=== PATIENT | female | born 1960 | race Caucasian/White ===

== ENCOUNTER 2016-12-09 13:16 | Emergency (ER) | payer MEDICAID ==
[2016-12-09 13:20] VITALS: BP 131/82; PULSE 80; RESP 20; TEMP 98.5; O2SAT 99
[2016-12-09] MEDS ORDERED: RANI150T PO (13:51)
[2016-12-09] MEDS ORDERED: TRIA.1%T TOPICAL (13:51)
[2016-12-09] MEDS ORDERED: HYDR-3133 PO (13:51)
[2016-12-09] MEDS ORDERED: VENTAER INH (13:51)
[2016-12-09] MEDS ORDERED: PRED20 PO (13:51)
[2016-12-09] MEDS ORDERED: ZANT150T2 PO (13:51)
[2016-12-09] MEDS ORDERED: ATOR20TA15 PO (13:51)
[2016-12-09] MEDS ORDERED: REGL5TAB PO (13:51)
[2016-12-09] MEDS ORDERED: TRIA0.022 TOPICAL (13:51)
[2016-12-09] MEDS ORDERED: diphenhydrAMINE HCL 50 MG/ML VIAL IV PUSH ONE ×2 (14:15→15:30)
[2016-12-09] MEDS ORDERED: SODIUM CHLORIDE 0.9% FLUSH 10 ML FLUSH IV FLUSH PRN (14:15)
[2016-12-09 14:23] VITALS: O2SAT 98
[2016-12-09 14:38] LABS: AUTOMATED NEUTROPHIL # 9.6 TH/MM3 (1.8-7.7); BASOPHIL # 0.1 TH/MM3 (0-0.2); BASOPHIL % 0.8 % (0.0-2.0); EOSINOPHIL # 0.6 TH/MM3 (0-0.4); EOSINOPHIL % 5.2 % (0.0-4.0); HEMATOCRIT 45.3 % (35.0-46.0); HEMO FLAGS DIFF FINAL; LYMPH % 6.4 % (9.0-44.0); LYMPHOCYTE # 0.8 TH/MM3 (1.0-4.8); MEAN CELL VOLUME 79.7 FL (80.0-100.0); MEAN CORPUSCULAR HEMOGLOBIN 25.9 PG (27.0-34.0); MEAN CORPUSCULAR HGB CONC 32.5 % (32.0-36.0); MONO % 6.5 % (0.0-8.0); NEUT % 81.1 % (16.0-70.0); PLATELET COUNT 209 TH/MM3 (150-450); RED BLOOD COUNT 5.69 MIL/MM3 (4.00-5.30); WHITE BLOOD COUNT 11.9 TH/MM3 (4.0-11.0)
--- NOTE | 2016-12-09 14:38 | PD ---
HPI Chief Complaint: Allergic/Adverse Reaction Time Seen by Provider: 13:57 Travel History International Travel<30 days: No Contact w/Intl Traveler<30days: No Traveled to known affect area: No History of Present Illness HPI The patient is Greek-speaking only and prefers to use her daughter for translation consider transitional services. 56-year-old female here for evaluation of possible allergic reaction to Plaquenil and Celebrex. She states that she was prescribed these medications on 11/29/16 for arthritis. She took 2 doses of the plaque 10 before noticing a pruritic rash on her arms and legs. She has been seen by multiple physicians since this time including 2 other urgency department visits for which she was prescribed prednisone. It doesn't sound like the patient was initially compliant with prednisone as she voices concern about gaining weight from these medications. She presents today because she is complaining of soreness in her mouth/throat with redness as well as vaginal/groin pruritus. No fever. No dyspnea. PFSH Social History Alcohol Use: No Tobacco Use: No Substance Use: No Allergies-Medications (Allergen,Severity, Reaction): Coded Allergies: Celebrex (Verified Allergy, Unknown, 12/09/16) Plaquenil (Verified Allergy, Unknown, 12/09/16) Reported Meds & Prescriptions Reported Meds & Active Scripts Active Reported Ventolin Hfa 18 GM Inh (Albuterol Sulfate) 90 Mcg/Act Aer 2 Puff INH Q4-6H PRN Reglan (Metoclopramide HCl) 5 Mg Tab 5 Mg PO TIDAC Atorvastatin (Atorvastatin Calcium) 20 Mg Tab 20 Mg PO HS Triamcinolone Topical (Triamcinolone Acetonide) 0.1% Cream 1 Applic TOPICAL BID Ranitidine (Ranitidine HCl) 150 Mg Tab 150 Mg PO HS Prednisone 20 Mg Tab 20 Mg PO DAILY Hydroxyzine HCl 25 Mg Tab 25 Mg PO QID PRN Review of Systems Except as stated in HPI: all other systems reviewed are Neg Physical Exam Narrative GENERAL: Well-developed, well-nourished, comfortable, no acute distress. SKIN: Diffuse erythematous maculopapular rash that is blanching, nonraised skin , no ulcerations, no desquamation, negative Nikolsky sign, no blistering. HEAD: Atraumatic. Normocephalic. EYES: Pupils equal and round. No scleral icterus. No injection or drainage. ENT: No nasal bleeding or discharge. Mucous membranes pink and moist. Pharynx is slightly erythematous without exudates. Uvula is midline. No ulcerative intraoral lesions. NECK: Trachea midline. No JVD. No nuchal rigidity. CARDIOVASCULAR: Regular rate and rhythm. RESPIRATORY: No accessory muscle use. Clear to auscultation. Breath sounds equal bilaterally. GASTROINTESTINAL: Abdomen soft, non-tender, nondistended. GENERAL HANDLING SUPERVISOR: Exam performed in the presence of a female nurse. Normal external genitalia. No vaginal discharge. Normal vaginal mucosa. MUSCULOSKELETAL: No obvious deformities. No clubbing. No cyanosis. No edema. NEUROLOGICAL: Awake and alert. No obvious cranial nerve deficits. Motor grossly within normal limits. Normal speech. PSYCHIATRIC: Appropriate mood and affect; insight and judgment normal. Data Data Last Documented VS Vital Signs Date Time Temp Pulse Resp B/P Pulse Ox O2 Delivery O2 Flow Rate FiO2 12/09/16 16:47 84 18 126/73 98 Room Air 12/09/16 13:20 98.5 Orders Complete Blood Count With Diff (12/09/16 14:12) Comprehensive Metabolic Panel (12/09/16 14:12) Prothrombin Time / Inr (Pt) (12/09/16 14:12) Act Partial Throm Time (Ptt) (12/09/16 14:12) Iv Access Insert/Monitor (12/09/16 14:12) Ecg Monitoring (12/09/16 14:12) Oximetry (12/09/16 14:12) Sodium Chloride 0.9% Flush (Ns Flush) (12/09/16 14:15) Group A Rapid Strep Screen (12/09/16 14:12) Wet Prep Profile (12/09/16 14:12) Diphenhydramine Inj (Benadryl Inj) (12/09/16 14:15) Strep Culture (Group A) (12/09/16 14:20) Urinalysis - C+S If Indicated (12/09/16 14:54) Dexamethasone Inj (Decadron Inj) (12/09/16 15:30) Diphenhydramine Inj (Benadryl Inj) (12/09/16 15:30) Lorazepam Inj (Ativan Inj) (12/09/16 15:45) Al-Mag Hy-Si 40-40-4 Mg/Ml Liq (Mag-Al P (12/09/16 16:15) Lidocaine 2% Viscous (Xylocaine 2% Visco (12/09/16 16:15) Sodium Chlor 0.9% 1000 Ml Inj (Ns 1000 M (12/09/16 16:45) Labs Laboratory Tests Test 12/09/16 12/09/16 12/09/16 14:20 14:54 14:56 White Blood Count 11.9 TH/MM3 Red Blood Count 5.69 MIL/MM3 Hemoglobin 14.7 GM/DL Hematocrit 45.3 % Mean Corpuscular Volume 79.7 FL Mean Corpuscular Hemoglobin 25.9 PG Mean Corpuscular Hemoglobin 32.5 % Concent Red Cell Distribution Width 14.0 % Platelet Count 209 TH/MM3 Mean Platelet Volume 8.9 FL Neutrophils (%) (Auto) 81.1 % Lymphocytes (%) (Auto) 6.4 % Monocytes (%) (Auto) 6.5 % Eosinophils (%) (Auto) 5.2 % Basophils (%) (Auto) 0.8 % Neutrophils # (Auto) 9.6 TH/MM3 Lymphocytes # (Auto) 0.8 TH/MM3 Monocytes # (Auto) 0.8 TH/MM3 Eosinophils # (Auto) 0.6 TH/MM3 Basophils # (Auto) 0.1 TH/MM3 CBC Comment DIFF FINAL Differential Comment Prothrombin Time 10.6 SEC Prothromb Time International 1.0 RATIO Ratio Activated Partial 22.7 SEC Thromboplast Time Sodium Level 142 MEQ/L Potassium Level 4.8 MEQ/L Chloride Level 106 MEQ/L Carbon Dioxide Level 28.8 MEQ/L Anion Gap 7 MEQ/L Blood Urea Nitrogen 12 MG/DL Creatinine 0.93 MG/DL Estimat Glomerular Filtration 62 ML/MIN Rate Random Glucose 98 MG/DL Calcium Level 9.1 MG/DL Total Bilirubin 0.3 MG/DL Aspartate Amino Transf 45 U/L (AST/SGOT) Alanine Aminotransferase 35 U/L (ALT/SGPT) Alkaline Phosphatase 89 U/L Total Protein 7.3 GM/DL Albumin 3.9 GM/DL Clue Cells (Wet Prep) NONE SEEN Vaginal Trichomonas (Wet Prep) NONE SEEN Vaginal Yeast (Wet Prep) NONE SEEN Urine Color LIGHT-YELLOW Urine Turbidity HAZY Urine pH 7.5 Urine Specific [place] 1.012 Urine Protein NEG mg/dL Urine Glucose (UA) NEG mg/dL Urine Ketones NEG mg/dL Urine Occult Blood NEG Urine Nitrite NEG Urine Bilirubin NEG Urine Urobilinogen LESS THAN 2.0 MG/DL Urine Leukocyte Esterase MOD Urine RBC 5 /hpf Urine WBC 4 /hpf Urine Squamous Epithelial 2 /hpf Cells Urine Mucus FEW /lpf Microscopic Urinalysis Comment CULT NOT INDICATED MDM Medical Decision Making Medical Screen Exam Complete: Yes Emergency Medical Condition: Yes Differential Diagnosis Adverse medication reaction, Fonseca-Gilberto syndrome/TENS unlikely, agranulocytosis, thrombocytopenia, Narrative Course Vital signs show heart rate 80, blood pressure 131/82, pulse ox 99% on room air , oral temp of 98.5F. CBC shows WBC 11.9, hemoglobin 14.7, hematocrit 45.3, platelets 209, neutrophils 81%. (the patient is on prednisone) CMP is unremarkable. UA is not suggestive of UTI. Wet prep is negative for yeast, negative for clue cells, negative for Trichomonas. Patient was given IV Benadryl and maculopapular rash has resolved. She is still scratching and complaining of itching. There are no blistering or ulcerative lesions on her skin or intraorally. I do not believe she has Fonseca -Gilberto syndrome or TENS. She is overall very well-appearing. She still has some prednisone at home. She was given a dose of Decadron here in the emergency department and shortly after she began experiencing a burning sensation in her chest and nausea. EKG was performed and shows no signs of ischemia. She was given another dose of Benadryl, GI cocktail, and Ativan and on reassessment was sleeping comfortably. When she wakes up she begins to scratch herself again. Again there are no signs of skin sloughing or ulcerative lesions. At this point she is stable for discharge home with outpatient follow-up. I encouraged her to follow up with the assembler installer general who prescribed the Plaquenil. She was advised to follow-up with a primary care physician as well this week. She was informed on when to return to the emergency department. Both the patient and the patient's daughter verbalize understanding and agreement with plan. Diagnosis Primary Impression: Adverse drug reaction Qualified Code: T88.7XXD - Adverse drug reaction, subsequent encounter Referrals: Primary Care Physician 3 days Additional Instructions: Follow-up with a primary care physician this week. Follow-up with your assembler installer general this week. Return to the emergency department for worsening symptoms or any other concerns as discussed. Scripts Hydroxyzine Pamoate (Vistaril)50 Mg Cap50 Mg PO TID #20 CAP Ref 0 Prov:Osman Ordoñez MD 12/09/16 Disposition: 01 DISCHARGE HOME Condition: Stable Osman Ordoñez MD December 09, 2016 14:38
[2016-12-09 14:44] LABS: APTT (PATIENT) 22.7 SEC (24.3-30.1); PROTHROMBIN TIME - PATIENT 10.6 SEC (9.8-11.6)
[2016-12-09 14:51] LABS: ALKALINE PHOSPHATASE 89 U/L (45-117); TOTAL BILIRUBIN ADULT 0.3 MG/DL (0.2-1.0)
[2016-12-09 14:57] LABS: ALT (GPT) 35 U/L (10-53); ANION GAP 7 MEQ/L (5-15); AST (GOT) 45 U/L (15-37); BICARBONATE 28.8 MEQ/L (21.0-32.0); BLOOD UREA NITROGEN 12 MG/DL (7-18); CHLORIDE 106 MEQ/L (98-107); GLOMERULAR FILTRATION RATE 62 ML/MIN (>89); SODIUM (NA) 142 MEQ/L (136-145)
[2016-12-09 14:58] LABS: POTASSIUM 4.8 MEQ/L (3.5-5.1)
[2016-12-09 15:13] LABS: BLOOD, URINE NEG (NEG); GLUCOSE,URINE NEG (NEG); KETONE, URINE NEG (NEG); MUCUS URINE FEW /lpf (OCC); NITRITE,URINE NEG (NEG); PH, URINE 7.5 (5.0-8.5); SQUAMOUS EPITHELIAL CELL URINE 2 /hpf (0-5); URINE COLOR LIGHT-YELLOW (YELLW/STRAW)
[2016-12-09 15:14] LABS: COMMENT (UR) CULT NOT INDICATED; CULTURE IF INDICATED CULT NOT INDICATED
[2016-12-09] MEDS ORDERED: DEXAMETHASONE SOD PHOS 20 MG/5 ML VIAL IV PUSH ONE (15:30)
[2016-12-09] MEDS ORDERED: LORazepam 2 MG/ML VIAL IV PUSH ONE (15:45)
[2016-12-09] MEDS ORDERED: ALUMINUM/MAGNESIUM/SIMETH 30 ML CUP PO ONE (16:15)
[2016-12-09] MEDS ORDERED: LIDOCAINE VISCOUS 2% SOLN 15 ML UDC PO ONE (16:15)
[2016-12-09] MEDS ORDERED: SODIUM CHLOR 0.9% 1000 ML INJ 1,000 ML IV ONE (16:45)
[2016-12-09 16:47] VITALS: BP 126/73; PULSE 84; RESP 18; O2SAT 98
[2016-12-09] MEDS ORDERED: VIST50CA PO (17:50)
--- NOTE | 2016-12-10 16:58 | EKG ---
Date Performed: 12/09/2016 Time Performed: 15:40:22 PTAGE: 56 years EKG: Sinus rhythm LOW QRS VOLTAGE IN PRECORDIAL LEADS BORDERLINE ECG NO PREVIOUS TRACING DOCTOR: Geraldine Alanis Interpretating Date/Time 12/10/2016 16:57:23
== END 2016-12-09 18:03 | disposition home or self-care (01) ==
LOC: NEPD 13:16
DX: R21 Rash and other nonspecific skin eruption (principal); L29.2 Pruritus vulvae; R94.31 Abnormal electrocardiogram [ECG] [EKG]; T37.8X5A Adverse effect of other specified systemic anti-infectives and antiparasitics, initial encounter; Y92.009 Unspecified place in unspecified non-institutional (private) residence as the place of occurrence of the external cause
CPT/HCPCS: 80053; 81001; 85025; 85610; 85730; 87081; 87210; 87880; 93005; 96361; 96374; 96375; 96376; 99283; J1100; J1200; J2060; J7030